=== PATIENT | female | born 1985 | race Caucasian/White ===

== ENCOUNTER 2018-10-19 06:23 | Day surgery (SDC) | payer BC, MEDICAID, OTHER ==
[2018-10-16 10:37] LABS: HEMATOCRIT 42.4 % (36.0-47.0); HEMOGLOBIN 14.4 g/dL (12.0-15.5); MEAN CORPUSCULAR HEMOGLOBIN 30.2 pg (27.0-33.4); MEAN CORPUSCULAR HGB CONC 33.9 g/dL (32.0-36.0); MEAN CORPUSCULAR VOLUME 89 fl (80-97); PLATELET COUNT 338 10^3/uL (150-450); RED BLOOD COUNT 4.76 10^6/uL (3.72-5.28); RED CELL DISTRIBUTION WIDTH 13.5 % (11.5-14.0); WHITE BLOOD COUNT 8.2 10^3/uL (4.0-10.5)
[2018-10-16 10:39] LABS: APPEARANCE,URINE CLEAR; BILIRUBIN,URINE NEGATIVE (NEGATIVE); COLOR,URINE STRAW; GLUCOSE, URINE NEGATIVE (NEGATIVE); KETONES,URINE NEGATIVE (NEGATIVE); LEUKOCYTE ESTERASE,URINE NEGATIVE (NEGATIVE); NITRITE,URINE NEGATIVE (NEGATIVE); PROTEIN,URINE NEGATIVE (NEGATIVE); URINE SPECIFIC GRAVITY 1.005; UROBILINOGEN,URINE NEGATIVE mg/dL (<2.0)
--- NOTE | 2018-10-16 22:38 | EKG REPORT ---
SEVERITY:- NORMAL ECG - SINUS RHYTHM : Confirmed by: Anisa Handley MD 16-Oct-2018 22:37:42
[~2018-10-19 06:23] MED LIST: LACTATED RINGERS 1000 ML IV PRN; LIDOCAINE 0.5% INJ-PF (5 MG/ML) 50 ML SDV SUBCUT PRN
[2018-10-19] MEDS ORDERED: ONDANSETRON HCL INJ/PF 4 MG/2 ML SDV ONE (08:03)
[2018-10-19] MEDS ORDERED: MIDAZOLAM 2 MG/2 ML INJ ONE (08:03)
[2018-10-19] MEDS ORDERED: FENTANYL CITRATE INJ/PF 100 MCG/2 ML AMPUL ONE (08:03)
[2018-10-19] MEDS ORDERED: DEXAMETHASONE SOD PHOSPHATE INJ 4 MG/1 ML VIAL ONE (08:03)
[2018-10-19] MEDS ORDERED: PROPOFOL INJ 200 MG/20 ML VIAL IV ONE (08:04)
[2018-10-19] MEDS ORDERED: LIDOCAINE 1%/EPINEPHRINE INJ 20 ML VIAL ONE (08:15)
[2018-10-19] MEDS ORDERED: FENTANYL CITRATE INJ/PF 100 MCG/2 ML AMPUL IV PRN ×3 (08:45)
[2018-10-19] MEDS ORDERED: DIPHENHYDRAMINE HCL 50 MG/ML VIAL IV PRN (08:45)
[2018-10-19] MEDS ORDERED: ONDANSETRON HCL INJ/PF 4 MG/2 ML SDV IV PRN ×2 (08:45→09:46)
[2018-10-19] MEDS ORDERED: PROMETHAZINE HCL INJ 25 MG/1 ML VIAL IV PRN ×2 (08:45)
[2018-10-19] MEDS ORDERED: MEPERIDINE HCL/PF INJ 25 MG/1 ML DISP.SYRIN IV PRN (08:45)
[2018-10-19] MEDS ORDERED: KETOROLAC TROMETHAMINE INJ/PF 30 MG/1 ML SDV ONE (09:14)
[2018-10-19] MEDS ORDERED: IBUPROFEN 800 MG TABLET ONE (09:50)
[2018-10-19 11:28] VITALS: BP 142/78
[2018-10-19] MEDS ORDERED: SUCCINYLCHOLINE CHLORIDE INJ 200 MG/10 ML VIAL ONE (14:58)
--- NOTE | 2018-11-02 18:37 | Operative Report ---
Operative Report DATE OF SURGERY: 10/19/18 PREOPERATIVE DIAGNOSIS: Dysfunctional Uterine Bleeding POSTOPERATIVE DIAGNOSIS: SHE OPERATION: EUA, Paracervical Block, Hysteroscopy, D&C, Novasure. SURGEON: CAROLYN LEHMAN ANESTHESIA: GA TISSUE REMOVED OR ALTERED: ECC, EMC COMPLICATIONS: None ESTIMATED BLOOD LOSS: less than 5ml INTRAOPERATIVE FINDINGS: poor uterine descent, 8wks AV uterus, no adnexal masses. thin endomtrium, no evidence of polyps, Uterine cavity 5, Uterine cavity width 4.2, Time 86 sec, Power 116 PROCEDURE: Anesthesia: [Jani Polanco CRNA, Kurt Rodriguez MD] Anesthesia: GA EBL: less than 5ml IVF: [800ml] UOP: void prior to OR Indications: [33yo currently using vasectomy for contraception. She reports negative post vasectomy semen analysis. She has dysfunctional uterine bleeding and is using DepoProvera every 10weeks to help with DUB. The risks, benefits, alternatives were reviewed and the patient desired to proceed with planned procedure. ] Procedure: The patient was taken to the Operating Room where general anesthesia was obtained without difficulty. She was prepped and draped in the normal sterile fashion in the dorsal lithotomy position. Exam under anesthesia was performed and noted above. A speculum was placed in the vagina. The anterior cervix was grasped with a single-tooth tenaculum and the uterus sounded to 8 cm after paracervical block was performed with 8 mL of 1% lidocaine with epinephrine. Sequential dilators were then used to dilate the cervix to accommodate the Myosure hysteroscope. The hysteroscope was then gently advanced into the uterine cavity in the usual fashion with visualization of the endometrium as noted above. The hysteroscope was then removed as the Myosure device was not needed. At this time gentle curettage was performed until a gritty texture was noted. The novasure device was then advanced into the uteri ne cavity in the usual fashion and the Novasure endometrial ablation was performed in the usual fashion. All instruments were removed from the patient's cervix and vagina. Silver nitrate was applied to the tenaculum site for hemostasis. Sponge lap needle and instrument counts are correct 2. No perioperative antibiotics were given as is not indicated for this procedure. The patient tolerated the procedure well and was taken to the recovery area awake and in stable condition.
== END 2018-10-19 11:20 | disposition home or self-care (01) ==
LOC: OROUT 06:23
PROVIDERS: ATTEND Student in an Organized Health Care Education/Training Program
DX: N93.8 Other specified abnormal uterine and vaginal bleeding (principal); Z32.02 Encounter for pregnancy test, result negative; N92.1 Excessive and frequent menstruation with irregular cycle
CPT/HCPCS: 93005; 36415; 85027; 81025; 81001; 88305 ×2; 93010; 58563; J2250; J1100; J3010; J3490; J1885; J0330; J2405; J2704; 952